=== PATIENT | female | born 1980 | race Caucasian/White ===

== ENCOUNTER 2018-11-27 03:56 | Emergency (ER) | payer OTHER ==
[~2018-11-27] VITALS: Ht 162.6 cm; Wt 61.2 kg
[2018-11-27] MEDS ORDERED: KLONOPIN1 MG PO (04:13)
[2018-11-27] MEDS ORDERED: VYVANSE60 MG PO (04:13)
[2018-11-27] MEDS ORDERED: SERTRALINE HCL50 MG PO (04:13)
[2018-11-27 04:14] LABS: URINE BILIRUBIN 1+ (Negative); URINE BLOOD 3+ (Negative); URINE COLOR YELLOW; URINE GLUCOSE-RANDOM* 1+ (Negative); URINE KETONES NEGATIVE (Negative); URINE LEUKOCYTES-REFLEX NEGATIVE (Negative); URINE NITRITE-REFLEX NEGATIVE (Negative); URINE PROTEIN (DIPSTICK) TRACE (Negative); URINE UROBILINOGEN 0.2 E.U./dl (0.2-1.0)
[2018-11-27 04:16] LABS: URINE CLARITY CLOUDY
[2018-11-27 04:26] LABS: BACTERIA-REFLEX 1-9 Few /HPF (None Seen); CASTS None Seen /LPF (None Seen); CRYSTALS None Seen /LPF (None Seen); MUCUS 0-3 Light strn/LPF (None Seen); SQUAMOUS 0-3 Few /LPF (0-3); URINE RBC >20 Many /HPF (0-2); URINE WBC-REFLEX 0-5 Rare /HPF (0-5)
[2018-11-27 04:54] LABS: HEMATOCRIT 39.4 % (37.0-47.0); HEMOGLOBIN 13.4 gm/dL (12.0-15.0); MCH 30.4 pg (26.0-34.0); MCV 89.4 fL (80.0-100.0); PLATELET COUNT 228 thou/uL (150-400); RBC 4.41 mil/uL (4.20-5.00); RDW 12.6 % (10.5-14.5); WBC 5.5 thou/uL (4.0-11.0)
[2018-11-27 04:57] LABS: CALCIUM 8.2 mg/dL (8.5-10.1); CREATININE 0.6 mg/dL (0.6-1.0); POTASSIUM 4.2 mmol/L (3.5-5.1)
[2018-11-27 05:03] LABS: ALBUMIN 3.6 g/dL (3.4-5.0); TOTAL BILIRUBIN 0.2 mg/dL (<0.1-1.0); TOTAL PROTEIN 6.6 g/dL (6.4-8.2)
[2018-11-27 06:12] LABS: ABSOLUTE NEUTROPHILS 1.2 thou/uL (1.4-8.2); PLATELET ESTIMATE NORMAL
[2018-11-27 06:24] LABS: AMP/METHAMP Negative (Negative); BARBITURATES Negative (Negative); BENZODIAZEPINES POSITIVE (Negative); COCAINE Negative (Negative); METHADONE Negative (Negative); OPIATES POSITIVE (Negative); PCP Negative (Negative)
[2018-11-27] MEDS ORDERED: TRAMADOL 50 MG50 MG PO (06:43)
[2018-11-27 07:57] VITALS: BP 112/78
== END 2018-11-27 08:02 | disposition still patient (30) ==
LOC: ER 03:56
PROVIDERS: Emergency Medicine
DX: K59.00 Constipation, unspecified (principal); K92.0 Hematemesis; Z98.84 Bariatric surgery status; Z88.8 Allergy status to other drugs, medicaments and biological substances; Z90.49 Acquired absence of other specified parts of digestive tract

== ENCOUNTER 2019-03-22 17:57 | Emergency (ER) | payer OTHER ==
[~2019-03-22] VITALS: Ht 162.6 cm; Wt 68.0 kg
[~2019-03-22 17:57] MED LIST: KLONOPIN1 MG PO; SERTRALINE HCL50 MG PO; TRAMADOL 50 MG50 MG PO; VYVANSE60 MG PO
[2019-03-22 19:47] VITALS: BP 124/56
--- NOTE | 2019-03-23 16:59 | EKG ---
[address] [place] [address] ELECTROCARDIOGRAM REPORT Name: MELANIA HOLLEY Room [facility]: [id number] Admission: 03/22/19 Attend Phys: Discharge: 03/22/19 Date of : 78 Report #: [id number] THIS REPORT FOR: //name// [facility] ED Test Date: 2019-03-22 Test Time: 18:06:31 Pat Name: MELANIA HOLLEY Department: Room: Gender: F [employer]: : 1980 Requested By: Abrahan Gordillo Order Number: [id number] MD: Dionicio Hernandez Measurements Intervals [place] Rate: 71 P: -5 NE: 121 QRS: -8 QRSD: 105 T: 29 QT: 380 QTc: 413 Interpretive Statements Sinus rhythm RSR' in V1 or V2, right VCD Baseline wander in lead(s) II,III,aVF No previous ECG available for comparison Electronically Signed On 03-23-2019 16:59:28 [employer]STR[employer] DEVELOPER by Dionicio Hernandez [email or web address] <ELECTRONICALLY SIGNED> By: Dionicio Hernandez MD, [facility] 03/23/19 1659 05 05 Dionicio Hernandez MD, [facility] /EPI
== END 2019-03-22 19:40 | disposition home or self-care (01) ==
LOC: ER 17:57
DX: F41.9 Anxiety disorder, unspecified (principal); Z65.8 Other specified problems related to psychosocial circumstances; Z88.6 Allergy status to analgesic agent; Z90.49 Acquired absence of other specified parts of digestive tract